=== PATIENT | male | born 1950 | race Caucasian/White ===

== ENCOUNTER 2022-11-19 16:50 | Observation (INO) | payer MEDICARE, OTHER ==
[2022-11-19] MEDS ORDERED: methocarbamoL 500 MG TAB PO STA (17:18)
--- NOTE | 2022-11-19 17:21 | ED ---
Back Pain HPI - General Chief Complaint: Back Pain/Injury Stated Complaint: back pain Source: EMS Limitations: no limitations - History of Present Illness Initial Comments: 71-year-old male with past medical history significant for COPD presents to the ER with a chief complaint of back pain. Patient states he was coughing, as per usual with history of COPD and tobacco use when all of a sudden started to feel pain of his lower back after coughing. States that due to severity of the pain has been unable to ambulate and has had difficulties moving. Denies saddle anesthesia. Denies incontinence. No other complaints at this time. - Related Data Allergies Allergy/AdvReac Type Severity Reaction Status Date / Time No Known Allergies Allergy Verified 11/19/22 17:02 Review of Systems ROS Statement: Those systems with pertinent positive or pertinent negative responses have been documented in the HPI. ROS Other: All systems not noted in ROS Statement are negative. Past Medical History Past Medical History: Cancer, COPD History of Any Multi-Drug Resistant Organisms: None Reported Past Surgical History: Back Surgery Smoking Status: Current every day smoker Past Alcohol Use History: Occasional Past Drug Use History: None Reported General Exam Limitations: no limitations General appearance: alert, in no apparent distress Eye exam: Present: normal appearance Neck exam: Present: other (No midline cervical spinal tenderness to palpation.) Respiratory exam: Present: normal lung sounds bilaterally Cardiovascular Exam: Present: regular rate, normal rhythm GI/Abdominal exam: Present: soft Extremities exam: Present: other (Strength and sensation in bilateral lower extremities equal and intact.) Back exam: Present: other (No Midline thoracic spinal tenderness to palpation. Midline lumbar and paraspinal tenderness to palpation.) Neurological exam: Present: alert, oriented X3 Skin exam: Present: warm, dry Course Vital Signs 11/19/22 16:56 Temperature 97.8 F Pulse Rate 57 L Respiratory 16 Rate Blood Pressure 124/82 O2 Sat by Pulse 100 Oximetry Medical Decision Making - Medical Decision Making Was pt. sent in by a medical professional or institution (, PA, RIFLE CASE REPAIRER, urgent care, hospital, or prison...) When possible be specific @ -No Did you speak to anyone other than the patient for history (EMS, parent, family, police, friend...)? What history was obtained from this source @ -No Did you review nursing and triage notes (agree or disagree)? Why? @ -I reviewed and agree with nursing and triage notes Were old charts reviewed (outside hosp., previous admission, EMS record, old EKG, old radiological studies, urgent care reports/EKG's, prison records)? Report findings @ -No old charts were reviewed Differential Diagnosis (chest pain, altered mental status, abdominal pain women, abdominal pain men, vaginal bleeding, weakness, fever, dyspnea, syncope, headache, dizziness, GI bleed, back pain, seizure, CVA, palpatations, mental health, musculoskeletal)? @ -Differential Musculoskeletal Muscular strain, contusion, ligament sprain, fracture, arthritis, septic arthritis, bursitis, cellulitis, muscle spasm, nerve compression, DVT, arterial occlusion, herpes zoster, electrolyte abnormality, tumor.... This is not meant to be in all inclusive list EKG interpreted by me (3pts min.). @ -None X-rays interpreted by me (1pt min.). @ -X-ray shows age indeterminate fractures involving L1 to L4. CT interpreted by me (1pt min.). @ -None done U/S interpreted by me (1pt. min.). @ -None done What testing was considered but not performed or refused? (CT, X-rays, U/S, labs)? Why? @ -None What meds were considered but not given or refused? Why? @ -None Did you discuss the management of the patient with other professionals (professionals i.e. , PA, RIFLE CASE REPAIRER, lab, RT, psych nurse, social work lecturer, tube bender hand, teacher, associate loan officer, registered nurse hh case manager)? Give summary @ -No Was smoking cessation discussed for >3mins.? @ -No Was critical care preformed (if so, how long)? @ -No Were there social determinants of health that impacted care today? How? (Homelessness, low income, unemployed, alcoholism, drug addiction, transportation, low edu. Level, literacy, decrease access to med. care, assisted, rehab)? @ -No Was there de-escalation of care discussed even if they declined (Discuss DNR or withdrawal of care, Hospice)? DNR status @ -No What co-morbidities impacted this encounter? (DM, HTN, Smoking, COPD, CAD, Cancer, CVA, ARF, Chemo, Hep., AIDS, mental health diagnosis, sleep apnea, morbid obesity)? @ -COPD Was patient admitted / discharged? Hospital course, mention meds given and route, prescriptions, significant lab abnormalities, going to OR and other pertinent info. @ -Admission. X-ray shows age indeterminate fractures involving L1 to L4. However, likely old. Patient reports incident 6 months ago and follows with Dr. Delgado at [facility] for this. At this time, patient has intractable pain and denies unable to move or ambulate secondary to this pain. Patient will be admitted for pain control, consult orthopedics, and possible consults to PT/OT. Discussed plan of care with patient who is in agreement. Undiagnosed new problem with uncertain prognosis? @ -No Drug Therapy requiring intensive monitoring for toxicity (Heparin, Nitro, Insulin, Cardizem)? @ -No Were any procedures done? @ -No Diagnosis/symptom? @ -Intractable back pain Acute, or Chronic, or Acute on Chronic? @ -Acute on chronic Uncomplicated (without systemic symptoms) or Complicated (systemic symptoms)? @ -Uncomplicated Side effects of treatment? @ -No Exacerbation, Progression, or Severe Exacerbation? @ -No Poses a threat to life or bodily function? How? (Chest pain, USA, VT, pneumonia, PE, COPD, DKA, ARF, appy, cholecystitis, CVA, Diverticulitis, Homicidal, Suicidal, threat to staff... and all critical care pts) @ -No Disposition Clinical Impression: Back pain Disposition: ADMITTED IP TO THIS HOSP Condition: Good Referrals: Nonstaff,Physician [Primary Care Provider] - 1-2 days Time of Disposition: 18:21
--- NOTE | 2022-11-19 17:58 | XR ---
EXAMINATION TYPE: XR chest 2V DATE OF EXAM: 11/19/2022 COMPARISON: NONE HISTORY: Shortness of breath TECHNIQUE: Frontal and lateral views of the chest are obtained. FINDINGS: Scattered senescent parenchymal changes noted. Hyperinflation compatible with COPD. There is increased opacity left mid and left lower lung zone which may reflect atelectasis, infiltrat e or mass. Pleural effusion is not excluded. Hyperinflation of the right lung noted. Heart size is stable. Mediastinal structures are stable and grossly unremarkable. There is large hiatal hernia noted. No evidence for hilar prominence. Degenerative changes dorsal spine. IMPRESSION: 1. There is increased opacity left mid and left lower lung zone which may reflect atelectasis, infilt rate or mass. Pleural effusion is not excluded. Hyperinflation of the right lung noted.
--- NOTE | 2022-11-19 18:00 | XR ---
EXAMINATION TYPE: XR lumbar spine 2 or 3V DATE OF EXAM: 11/19/2022 CLINICAL HISTORY: pain TECHNIQUE: Three views of the lumbar spine are submitted. COMPARISON: None. FINDINGS: T12 and L2 vertebroplasty changes. There is a loss of height involving L4 with estimated loss of heig ht of 30%. There is also mild loss of height involving superior endplate of L1 loss of height estimat ed at 10%. Degenerative changes noted. Vascular calcifications seen. IMPRESSION: Fractures of uncertain age and/or etiology involving L1 and L4.
[2022-11-19] MEDS ORDERED: HYDROmorphone 1 MG/ML 1 ML SYRINGE IVP STA (18:59)
[2022-11-19 19:17] LABS: Basophils % (A) 0 %; Eosinophils # (A) 0.1 k/uL (0-0.7); Eosinophils % (A) 1 %; HCT 39.6 % (39.0-53.0); HGB 13.6 gm/dL (13.0-17.5); Lymphocytes % (A) 16 %; MCH 30.5 pg (25.0-35.0); MCHC 34.3 g/dL (31.0-37.0); MCV 88.9 fL (80.0-100.0); Mean Platelet Volume 7.1; Monocytes # (A) 0.4 k/uL (0-1.0); Monocytes % (A) 7 %; Neutrophils # (A) 4.6 k/uL (1.3-7.7); Neutrophils % (A) 74 %; Platelet Count 235 k/uL (150-450); RBC 4.45 m/uL (4.30-5.90); RDW 13.5 % (11.5-15.5); WBC 6.3 k/uL (3.8-10.6)
[2022-11-19 19:28] LABS: ALT 17 U/L (4-49); AST 23 U/L (17-59); African American GFR (CKD) >90 (>60 ml/min/1.73 sqM); Alkaline Phosphatase 96 U/L (38-126); Amylase 40 U/L (30-110); Anion Gap 4 mmol/L; Blood Urea Nitrogen 8 mg/dL (9-20); Calcium 8.3 mg/dL (8.4-10.2); Carbon Dioxide 29 mmol/L (22-30); Chloride 95 mmol/L (98-107); Glucose 108 mg/dL (74-99); Lipase 70 U/L (23-300); Non-African American GFR(CKD) >90 (>60 ml/min/1.73 sqM); Potassium 3.9 mmol/L (3.5-5.1); Sodium 128 mmol/L (137-145); Total Bilirubin 0.5 mg/dL (0.2-1.3); Total Protein 5.8 g/dL (6.3-8.2)
[2022-11-19 19:33] LABS: INR 1.1 (<1.2); Partial Thromboplastin Time 29.5 sec (22.0-30.0); Prothrombin Time 11.4 sec (9.0-12.0)
--- NOTE | 2022-11-19 21:48 | CT ---
EXAMINATION TYPE: CT ChestAbdPelvis w con CT DLP: 670.6 mGycm, Automated exposure control for dose reduction was used. DATE OF EXAM: 11/19/2022 9:03 PM COMPARISON: None. CLINICAL INDICATION:Male, 71 years old with history of pain; PHH, generalized abd pain Technique: Multiple axial images of the chest, abdomen, and pelvis were obtained. Two-dimensional cor onal and sagittal reconstructions were obtained. Contrast used:100ml mL of Isovue 300 with IV Contrast, Oral contrast used: without Oral Contrast Findings: CHEST: LUNGS/ PLEURA: The right lung demonstrates moderate centrilobular emphysema changes. There is a diap hragmatic hernia with majority of the intra-abdominal contents within the left thorax. AIRWAY: There is layering debris within the left main bronchus. HEART: Heart is mildly enlarged for size coronary artery calcifications. MEDIASTINUM: No gross evidence of adenopathy. There is a large hiatal hernia with ingested contents w ithin the esophagus. VASCULATURE: No aortic aneurysm. MUSCULOSKELETAL: No acute osseous abnormalities. Remote appearing left rib injuries. Vertebroplasty c hanges within the spine L2 and T12. Multiple biconcave deformities are seen throughout the spine. The re is osteophyte formation, disc space narrowing and facet joint arthropathy. SOFT TISSUES/LYMPH NODES: Unremarkable. LOWER NECK: No significant findings. ABDOMEN: Evaluation of the abdomen is somewhat limited given the majority of it is within the thorax. ABDOMEN LIVER: Unremarkable GALLBLADDER AND BILE DUCTS: Intrahepatic biliary dilation. Mild extrahepatic biliary dilation. PANCREAS: Unremarkable. SPLEEN: Unremarkable. ADRENAL GLANDS: Unremarkable. KIDNEYS AND URETERS: And the left kidney is somewhat situated inferiorly and medial with the renal si nus projecting posteriorly. No definitive evidence for obstructive uropathy. Renal nephrograms are sy mmetric. PELVIS BLADDER: Unremarkable REPRODUCTIVE: Unremarkable. ABDOMEN & PELVIS STOMACH AND BOWEL: No evidence of bowel obstruction. PERITONEUM: No evidence of pneumoperitoneum or free fluid. VASCULATURE: Moderate atherosclerotic calcifications are present throughout the abdominal aorta and i ts branches. MUSCULOSKELETAL: No acute osseous abnormalities. Moderate disc degeneration changes are present throu ghout the thoracolumbar spine. Fixation changes to the left femur. Hardware appears intact. Multileve l degeneration changes throughout the spine. LYMPH NODES: No gross evidence for lymphadenopathy. SOFT TISSUE/ABDOMINAL WALL: Unremarkable IMPRESSION: Evaluation of the abdomen is somewhat limited given the majority of it is within the thorax. 1. There is a diaphragmatic hernia with majority of the intra-abdominal contents within the left tho rax. 2. Moderate emphysema changes. 3. Large hiatal hernia with large amount amount of ingested contents within the esophagus. 4. Layering debris in the left main bronchus could represent aspiration changes versus retained secr etions.
[2022-11-19] MEDS ORDERED: NALOXONE 0.4 MG/ML 1 ML VIAL IV PRN (22:02)
[2022-11-19] MEDS ORDERED: ONDANSETRON 4 MG/2 ML VIAL IVP PRN (22:02)
[2022-11-19] MEDS ORDERED: ACETAMINOPHEN TAB 325 MG TAB PO PRN (22:02)
[2022-11-19] MEDS: HYDROmorphone 1 MG/ML 1 ML SYRINGE IVP PRN (22:17)
[2022-11-19] MEDS: SODIUM CHLORIDE 0.9% 1,000 ML IV SCH (22:30)
[2022-11-20] MEDS: HYDROmorphone 1 MG/ML 1 ML SYRINGE IVP PRN ×8 (01:49→23:19)
[2022-11-20] MEDS ORDERED: MELATONIN 5 MG TABLET PO STA (01:58)
--- NOTE | 2022-11-20 02:12 | P.HPIM ---
History of Present Illness H&P Date: 11/19/22 Patient is a 71-year-old male with a PMH of COPD, hypertension, hyperlipidemia, and multiple spinal compression fractures who presents to the emergency room with complaints of lower back pain. The patient reports that earlier tonight she was coughing as per usual for his COPD when he suddenly developed a lower back severe bilateral pain, 10 out of 10, nonradiating, worsened with movement. The patient reports that this is similar to what he had his prior compression fractures. He reports the pain is improved with 5 out of 10 at the time of interview after having received pain medications. He denied experienced chest discomfort or shortness of breath. Also denied nausea, vomiting, diaphoresis. In the emergency room, CT chest, abdomen, and pelvis revealed a diaphragmatic hernia with intra-abdominal contents within the left hemithorax. There was also moderate emphysema changes as well as a large hiatal hernia with a large amount of ingested contents within the esophagus as well as layering debris in the left main bronchus suspicious for aspiration. Lumbar spinal x-ray revealed fractures of uncertain age involving L1 and L4. The patient's vital signs upon presentation were BP 124/82, SaO2 100% on 4 L nasal cannula oxygen, pulse 57, and temperature 97.8F. Laboratory evaluation was remarkable for sodium 128, chloride 95, BUN 8, creatinine 0.55, hemoglobin 13.6. ED documentation reviewed and case discussed with ED provider. Review of systems: Pertinent positives and negatives as discussed in HPI, a complete review of systems was performed and all other systems are negative. Physical examination: Vital signs reviewed General: non toxic, no distress, appears at stated age, thin Derm: no unusual rashes/lesions, warm Head: atraumatic, normocephalic, symmetric Eyes: EOMI, no lid lag, anicteric sclera, pupils equal round reactive to light ENT: Nose and ears atraumatic Neck: No cervical lymphadenopathy, trachea midline, supple Mouth: no lip lesion, mucus membranes moist Cardiovascular: S1S2 reg, no murmur, positive dorsalis pedis pulse bilateral, no edema Lungs: Diminished breath sounds over the left mid and lower lung geller, no rhonchi, no rales, no accessory muscle use Abdominal: soft, nontender to palpation, no guarding Ext: muscle strength 5 out of 5 in all 4 extremities grossly, no gross muscle atrophy, no contractures, lumbar spinal and paraspinal tenderness noted Neuro: CN II-XI grossly intact, no gross focal neuro deficits Psych: Alert, oriented, appropriate affect Assessment: Lower back pain, suspect due to compression fracture Diaphragmatic hernia with intra-abdominal contents in left hemithorax; suspect incidental finding Hypochloremic hyponatremia, suspect due to poor oral intake Esophageal contents with suspected aspiration Chronic conditions: Hypertension, hyperlipidemia, COPD Imaging: In the emergency room, CT chest, abdomen, and pelvis revealed a diaphragmatic hernia with intra-abdominal contents within the left hemithorax. There was also moderate emphysema changes as well as a large hiatal hernia with a large amount of ingested contents within the esophagus as well as layering debris in the left main bronchus suspicious for aspiration. Lumbar spinal x-ray revealed fractures of uncertain age involving L1 and L4. Data Review: The patient's vital signs upon presentation were BP 124/82, SaO2 100% on 4 L nasal cannula oxygen, pulse 57, and temperature 97.8F. Laboratory evaluation was remarkable for sodium 128, chloride 95, BUN 8, creatinine 0.55, hemoglobin 13.6. Plan: Orthopedic surgery consult Pain control TLSO Brace with bedrest Obtain general surgery consult for diaphragmatic hernia. Patient denied prior history of hernia Continue IV fluids with normal saline 75hour VALLEZ FILTER OPERATOR consult to rule out aspiration Continuing home medications DVT prophylaxis: Lovenox The patient is admitted with an anticipated greater than 2 midnight stay for evaluation of back pain CODE STATUS: Full Code Discussed with: Patient Anticipated discharge place: Home Past Medical History Past Medical History: Cancer, COPD History of Any Multi-Drug Resistant Organisms: None Reported Past Surgical History: Back Surgery Smoking Status: Current every day smoker Past Alcohol Use History: Occasional Past Drug Use History: None Reported Medications and Allergies Home Medications Medication Instructions Recorded Confirmed Type Albuterol Nebulized [Ventolin 2.5 mg INHALATION RT-QID PRN 11/19/22 11/19/22 History Nebulized] Albuterol Sulfate [Albuterol 1 - 2 puff PO RT-Q6H PRN 11/19/22 11/19/22 History Sulfate Hfa] Atorvastatin [Lipitor] 40 mg PO DAILY 11/19/22 11/19/22 History Budesonide/Formoterol Fumarate 2 puff INHALATION RT-BID 11/19/22 11/19/22 History [Symbicort 80-4.5 Mcg Inhaler] Clopidogrel [Plavix] 75 mg PO DAILY 11/19/22 11/19/22 History Fluticasone/Umeclidin/Vilanter 1 puff INHALATION RT-DAILY 11/19/22 11/19/22 History [Trelegy Ellipta 100-62.5-25] HYDROmorphone HCL [Dilaudid] 8 mg PO Q4H 11/19/22 11/19/22 History Ketoconazole 2% Cream [Nizoral 2%] 1 applic TOPICAL DAILY 11/19/22 11/19/22 History Metoprolol Tartrate [Lopressor] 12.5 mg PO BID 11/19/22 11/19/22 History Sacubitril/Valsartan [Entresto 24 1 tab PO BID 11/19/22 11/19/22 History mg-26 mg Tablet] Allergies Allergy/AdvReac Type Severity Reaction Status Date / Time No Known Allergies Allergy Verified 11/19/22 18:52 Physical Exam Vitals: Vital Signs Temp Pulse Resp BP Pulse Ox 11/19/22 22:39 62 95/78 99 11/19/22 22:00 97.7 F 50 L 124/82 100 11/19/22 21:52 100 11/19/22 16:56 97.8 F 57 L 16 124/82 100 Intake and Output 11/19/22 11/19/22 11/20/22 14:59 22:59 06:59 Other: Weight 53.524 kg Results CBC & Chem 7: 11/19/22 19:04 11/19/22 19:04 Labs: Abnormal Lab Results - Last 24 Hours (Table) 11/19/22 Range/Units 19:04 Sodium 128 L (137-145) mmol/L Chloride 95 L (98-107) mmol/L BUN 8 L (9-20) mg/dL Creatinine 0.55 L (0.66-1.25) mg/dL Glucose 108 H (74-99) mg/dL Calcium 8.3 L (8.4-10.2) mg/dL Total Protein 5.8 L (6.3-8.2) g/dL Albumin 3.0 L (3.5-5.0) g/dL
[2022-11-20 07:02] LABS: African American GFR (CKD) >90 (>60 ml/min/1.73 sqM); Anion Gap 4 mmol/L; Blood Urea Nitrogen 10 mg/dL (9-20); Carbon Dioxide 27 mmol/L (22-30); Chloride 97 mmol/L (98-107); Glucose 99 mg/dL (74-99); Non-African American GFR(CKD) >90 (>60 ml/min/1.73 sqM); Potassium 4.1 mmol/L (3.5-5.1); Sodium 128 mmol/L (137-145)
[2022-11-20] MEDS: ATORVASTATIN 40 MG TAB PO SCH (07:57)
[2022-11-20] MEDS: METOPROLOL TARTRATE 12.5 MG TAB PO SCH ×2 (07:57→21:05)
[2022-11-20] MEDS: CLOPIDOGREL 75 MG TAB PO SCH (07:57)
[2022-11-20] MEDS: KETOROLAC 15 MG/ML 1 ML VIAL IVP PRN (07:59)
[2022-11-20] MEDS: ENOXAPARIN 40 MG/0.4 ML SYRINGE SQ SCH ×2 (07:59→08:01)
[2022-11-20] MEDS ORDERED: SYMBICORT 80-4.5 MCG INHALER INHALATION SCH (08:00)
[2022-11-20] MEDS: SODIUM CHLORIDE 0.9% 1,000 ML IV SCH ×2 (11:25→23:22)
[2022-11-20] MEDS ORDERED: ALBUTEROL NEBULIZED 2.5 MG/3 ML INHALATION PRN (14:53)
--- NOTE | 2022-11-20 14:56 | P.PN ---
Subjective Progress Note Date: 11/20/22 Hospital Course: 71-year-old male with a PMH of COPD, hypertension, hyperlipidemia, and multiple spinal compression fractures who presents to the emergency room with complaints of lower back pain. In the emergency room, CT chest, abdomen, and pelvis revealed a diaphragmatic hernia with intra-abdominal contents within the left hemithorax. There was also moderate emphysema changes as well as a large hiatal hernia with a large amount of ingested contents within the esophagus as well as layering debris in the left main bronchus suspicious for aspiration. Lumbar spinal x-ray revealed fractures of uncertain age involving L1 and L4. The patient's vital signs upon presentation were BP 124/82, SaO2 100% on 4 L nasal cannula oxygen, pulse 57, and temperature 97.8F. Laboratory evaluation was remarkable for sodium 128, chloride 95, BUN 8, creatinine 0.55, hemoglobin 13.6. Orthospine and Gen. surgery consulted. Subjective: Patient seen and examined at bedside. No acute events overnight. He continues to have back pain. Pertinent positives and negatives as discussed above, a complete review of systems was performed and all other systems are negative. Vitals Signs Reviewed. General: non toxic, no distress, appears at stated age, thin Derm: no unusual rashes/lesions, warm Head: atraumatic, normocephalic, symmetric Eyes: EOMI, no lid lag, anicteric sclera, pupils equal round reactive to light ENT: Nose and ears atraumatic Neck: No cervical lymphadenopathy, trachea midline, supple Mouth: no lip lesion, mucus membranes moist Cardiovascular: S1S2 reg, no murmur, positive dorsalis pedis pulse bilateral, no edema Lungs: Diminished breath sounds over the left mid and lower lung geller, no rhonchi, no rales, no accessory muscle use Abdominal: soft, nontender to palpation, no guarding Ext: muscle strength 5 out of 5 in all 4 extremities grossly, no gross muscle a trophy, no contractures, lumbar spinal and paraspinal tenderness noted, straight leg raise test negative Neuro: CN II-XI grossly intact, no gross focal neuro deficits Psych: Alert, oriented, appropriate affect Data Reviewed Today: Pertinent Labs: Sodium 128, creatinine 0.49 Imaging: No new imaging Assessment and Plan: Active: Lower back pain, suspect due to compression fracture Diaphragmatic hernia with intra-abdominal contents in left hemithorax; suspect incidental finding Hypochloremic hyponatremia, suspect due to poor oral intake Esophageal contents with suspected aspiration -Orthopedic spine surgery consulted, pending recommendations, thoracic lumbar spine CT pending -Gen. surgery consulted, pending recommendations -Continue normal saline at 75 mL an hour -No signs or symptoms of infection Chronic: Hypertension, hyperlipidemia, COPD DVT ppx: Lovenox Code status: full code Anticipated discharge place: pending clinical course Anticipated discharge time: pending clinical course Objective - Vital Signs Vital signs: Vital Signs Temp 97.5 F L 11/20/22 07:08 Pulse 50 L 11/20/22 07:08 Resp 18 11/20/22 07:08 BP 115/63 11/20/22 07:08 Pulse Ox 96 11/20/22 07:08 FiO2 Intake & Output 11/19/22 11/20/22 11/20/22 18:59 06:59 18:59 Output Total 200 Balance -200 Weight 53.524 kg 53.524 kg Output: Urine 200 - Labs CBC & Chem 7: 11/19/22 19:04 11/20/22 06:36 Labs: Abnormal Lab Results - Last 24 Hours (Table) 11/19/22 11/20/22 Range/Units 19:04 06:36 Sodium 128 L 128 L (137-145) mmol/L Chloride 95 L 97 L (98-107) mmol/L BUN 8 L (9-20) mg/dL Creatinine 0.55 L 0.49 L (0.66-1.25) mg/dL Glucose 108 H (74-99) mg/dL Calcium 8.3 L 8.0 L (8.4-10.2) mg/dL Total Protein 5.8 L (6.3-8.2) g/dL Albumin 3.0 L (3.5-5.0) g/dL
[2022-11-20 15:08] VITALS: BMI 17.4
[2022-11-20] MEDS ORDERED: HYDROmorphone 2 MG TAB PO PRN (15:22)
[2022-11-20] MEDS ORDERED: CYCLOBENZAPRINE 5 MG TAB PO PRN (15:23)
--- NOTE | 2022-11-20 15:58 | P.GSCN ---
History of Present Illness Consult date: 11/20/22 Reason for Consult: Large hiatal hernia History of present illness: Is a 71-year-old male who was admitted to the hospital for back pain. Patient has fractures of L1 and L4. Patient has complaints of back pain. Patient awake CAT scan he was incidentally found to have a very large left sided hiatal hernia with a large component of the abdominal contents in the left chest. Past Medical History Past Medical History: Cancer, COPD History of Any Multi-Drug Resistant Organisms: None Reported Past Surgical History: Back Surgery Smoking Status: Current every day smoker Past Alcohol Use History: Occasional Past Drug Use History: None Reported Medications and Allergies Home Medications Medication Instructions Recorded Confirmed Type Albuterol Nebulized [Ventolin 2.5 mg INHALATION RT-QID PRN 11/19/22 11/19/22 History Nebulized] Albuterol Sulfate [Albuterol 1 - 2 puff PO RT-Q6H PRN 11/19/22 11/19/22 History Sulfate Hfa] Atorvastatin [Lipitor] 40 mg PO DAILY 11/19/22 11/19/22 History Budesonide/Formoterol Fumarate 2 puff INHALATION RT-BID 11/19/22 11/19/22 History [Symbicort 80-4.5 Mcg Inhaler] Clopidogrel [Plavix] 75 mg PO DAILY 11/19/22 11/19/22 History Fluticasone/Umeclidin/Vilanter 1 puff INHALATION RT-DAILY 11/19/22 11/19/22 History [Trelegy Ellipta 100-62.5-25] HYDROmorphone HCL [Dilaudid] 8 mg PO Q4H 11/19/22 11/19/22 History Ketoconazole 2% Cream [Nizoral 2%] 1 applic TOPICAL DAILY 11/19/22 11/19/22 History Metoprolol Tartrate [Lopressor] 12.5 mg PO BID 11/19/22 11/19/22 History Sacubitril/Valsartan [Entresto 24 1 tab PO BID 11/19/22 11/19/22 History mg-26 mg Tablet] Allergies Allergy/AdvReac Type Severity Reaction Status Date / Time No Known Allergies Allergy Verified 11/19/22 18:52 Surgical - Exam Vital Signs Temp Pulse Resp BP Pulse Ox 97.8 F 57 L 16 124/82 100 11/19/22 16:56 11/19/22 16:56 11/19/22 16:56 11/19/22 16:56 11/19/22 16:56 - General Patient is complaining of lower back pain well developed, moderate distress - Eyes PERRL - ENT normal pinna - Neck no masses - Respiratory normal expansion - Cardiovascular Rhythm: regular - Abdomen Abdomen: soft, non tender Results - Labs 11/19/22 19:04 11/20/22 06:36 Abnormal Lab Results - Last 24 Hours (Table) 11/19/22 11/20/22 Range/Units 19:04 06:36 Sodium 128 L 128 L (137-145) mmol/L Chloride 95 L 97 L (98-107) mmol/L BUN 8 L (9-20) mg/dL Creatinine 0.55 L 0.49 L (0.66-1.25) mg/dL Glucose 108 H (74-99) mg/dL Calcium 8.3 L 8.0 L (8.4-10.2) mg/dL Total Protein 5.8 L (6.3-8.2) g/dL Albumin 3.0 L (3.5-5.0) g/dL Diabetes panel 11/19/22 11/20/22 Range/Units 19:04 06:36 Sodium 128 L 128 L (137-145) mmol/L Potassium 3.9 4.1 (3.5-5.1) mmol/L Chloride 95 L 97 L (98-107) mmol/L Carbon Dioxide 29 27 (22-30) mmol/L BUN 8 L 10 (9-20) mg/dL Creatinine 0.55 L 0.49 L (0.66-1.25) mg/dL Glucose 108 H 99 (74-99) mg/dL Calcium 8.3 L 8.0 L (8.4-10.2) mg/dL AST 23 (17-59) U/L ALT 17 (4-49) U/L Alkaline Phosphatase 96 (38-126) U/L Total Protein 5.8 L (6.3-8.2) g/dL Albumin 3.0 L (3.5-5.0) g/dL Calcium panel 11/19/22 11/20/22 Range/Units 19:04 06:36 Calcium 8.3 L 8.0 L (8.4-10.2) mg/dL Albumin 3.0 L (3.5-5.0) g/dL Pituitary panel 11/19/22 11/20/22 Range/Units 19:04 06:36 Sodium 128 L 128 L (137-145) mmol/L Potassium 3.9 4.1 (3.5-5.1) mmol/L Chloride 95 L 97 L (98-107) mmol/L Carbon Dioxide 29 27 (22-30) mmol/L BUN 8 L 10 (9-20) mg/dL Creatinine 0.55 L 0.49 L (0.66-1.25) mg/dL Glucose 108 H 99 (74-99) mg/dL Calcium 8.3 L 8.0 L (8.4-10.2) mg/dL Adrenal panel 11/19/22 11/20/22 Range/Units 19:04 06:36 Sodium 128 L 128 L (137-145) mmol/L Potassium 3.9 4.1 (3.5-5.1) mmol/L Chloride 95 L 97 L (98-107) mmol/L Carbon Dioxide 29 27 (22-30) mmol/L BUN 8 L 10 (9-20) mg/dL Creatinine 0.55 L 0.49 L (0.66-1.25) mg/dL Glucose 108 H 99 (74-99) mg/dL Calcium 8.3 L 8.0 L (8.4-10.2) mg/dL Total Bilirubin 0.5 (0.2-1.3) mg/dL AST 23 (17-59) U/L ALT 17 (4-49) U/L Alkaline Phosphatase 96 (38-126) U/L Total Protein 5.8 L (6.3-8.2) g/dL Albumin 3.0 L (3.5-5.0) g/dL - Imaging CT scan - abdomen: report reviewed (Computed tomography scan reviewed. Large hiatal hernia with significant amount of bowel in left chest) Assessment and Plan Assessment: Large chronic hiatal hernia. Patient shows no sign of bowel obstruction. He has no significant abdominal pain. Patient's pain appears to be coming from his L1 to L4 back fractures. The patient will need to be medically optimized prior to any surgical intervention for his hiatal hernia. He is currently tolerating regular diet. We will remain on surgical standby.
--- NOTE | 2022-11-20 16:56 | CT ---
EXAMINATION TYPE: CT thor lumbar spine wo con CT DLP: DLP from [facility] on 11/19/22. mGycm, Automated exposure control for dose reduction was used. DATE OF EXAM: 11/20/2022 2:18 PM CLINICAL INDICATION:Male, 71 years old with history of back pain; Mid to low back pain. No new pain s rodrick prior CT on 11/19/22. COMPARISON: None TECHNIQUE: Axial images of the thoracic and lumbar spine were obtained without contrast. Coronal and sagittal reformats were performed. Imaging was used from one day prior on 11/19/[address] with reformats cr eated. CT Contrast: Contrast used: mL of , none. Oral contrast used: none. FINDINGS: Diffuse osseous demineralization is seen throughout the osseous structures. The spine demonstrates in creased kyphotic curvature secondary to multiple levels of compression deformities. There is facet rebekah int arthropathy, vacuum disc phenomenon, Schmorl's nodes, disc space narrowing and osteophyte formati on. Irregular morphology to the L4 vertebral body with lucency seen through the inferior endplate. No sig nificant retropulsion. Spinal canal is grossly patent given limitations of CT. Compression deformity of T7 and T8 with at least 50% height loss. Compression from T9, T10 and T11 wi th at least 25% height loss. T12 and L2 vertebroplasty changes. There is no evidence for significant spinal canal or neural foraminal stenosis. The remainder of the exam is unchanged from 11/19/2022 given these are reformatted images. IMPRESSION: 1. Diffuse osseous demineralization which limits evaluation for fractures. 2. L4 vertebral body illustrates lucency through the inferior vertebral body suspicious for a more a cute/subacute fracture. MRI recommended for confirmation on an outpatient basis. 3. Multilevel moderate to severe degeneration changes with varying degrees of neural foraminal steno sis.
--- NOTE | 2022-11-20 17:12 | P.CNOR ---
History of Present Illness - [facility] Consult date: 11/20/22 Consult reason: back pain History of present illness: Patient is a 71-year-old male who presented to [facility] on 11/19/2022 for evaluation of back pain. Patient was apparently on a coughing spell which led to severe low back pain. Patient has a known history of multiple thoracic and vertebral body compression fractures. Patient states that the pain felt like a previous compression fracture so he reported to the hospital for further evaluation. Patient has a known history of COPD and other medical comorbidities. Multiple imaging test and lab tests were done. I do to have normal CT abdomen and pelvis findings, Gen. surgery was also consulted. Our orthopedic team was consulted due to the thoracic/lumbar findings. Patient was evaluated today at bedside, he was resting comfortably in bed. He states that the pain is tolerable when he is not moving, any type of movement does cause pain in the low back. Patient had a previous fall about 4 months ago which resulted in multiple compression fractures in the thoracic and lumbar spine he states. He has been seeing 2 different providers at [place] [facility], apparently a kyphoplasty was done for 2 separate fractures. Patient has been utilizing a TLSO brace. Patient has also been taking hydromorphone 8 mg every 4 hours which seems to control pain. Patient still drives, he ambulates with very minimal assistance at this time. Patient denies any numbness or tingling involving the bilateral lower extremities, he denies any radiating pain to the lower extremities. He denies any genital or peroneal numbness or tingling. He denies any loss of bowel or bladder function. A computed tomography scan of the lumbar and thoracic spine without contrast was ordered after her first evaluation and discussion with my attending Dr. Prakash. Review of Systems Constitutional: Reports as per [facility] Past Medical History Past Medical History: Cancer, COPD History of Any Multi-Drug Resistant Organisms: None Reported Past Surgical History: Back Surgery Smoking Status: Current every day smoker Past Alcohol Use History: Occasional Past Drug Use History: None Reported Medications and Allergies Home Medications Medication Instructions Recorded Confirmed Type Albuterol Nebulized [Ventolin 2.5 mg INHALATION RT-QID PRN 11/19/22 11/19/22 History Nebulized] Albuterol Sulfate [Albuterol 1 - 2 puff PO RT-Q6H PRN 11/19/22 11/19/22 History Sulfate Hfa] Atorvastatin [Lipitor] 40 mg PO DAILY 11/19/22 11/19/22 History Budesonide/Formoterol Fumarate 2 puff INHALATION RT-BID 11/19/22 11/19/22 History [Symbicort 80-4.5 Mcg Inhaler] Clopidogrel [Plavix] 75 mg PO DAILY 11/19/22 11/19/22 History Fluticasone/Umeclidin/Vilanter 1 puff INHALATION RT-DAILY 11/19/22 11/19/22 History [Trelegy Ellipta 100-62.5-25] HYDROmorphone HCL [Dilaudid] 8 mg PO Q4H 11/19/22 11/19/22 History Ketoconazole 2% Cream [Nizoral 2%] 1 applic TOPICAL DAILY 11/19/22 11/19/22 History Metoprolol Tartrate [Lopressor] 12.5 mg PO BID 11/19/22 11/19/22 History Sacubitril/Valsartan [Entresto 24 1 tab PO BID 11/19/22 11/19/22 History mg-26 mg Tablet] Allergies Allergy/AdvReac Type Severity Reaction Status Date / Time No Known Allergies Allergy Verified 11/19/22 18:52 Physical Examination Gen: AOx3, NAD VSS stable at this time Integument: No obvious open lesions or sores are visualized throughout the cervical, thoracic or lumbar spine. There is no areas of erythema or soft tissue swelling Palpation: Patient demonstrates pain with palpation of the lower thoracic and lumbar spine both midline and paraspinal ROM: Full range of motion in all major muscle groups the bilateral upper and lower extremities, no focal deficits appreciated Sensory Exam: Senory exam to light touch is intact C5-T1 Senosry exam to light touch is intact L2-S1 Motor: 5/5 strength appreciated in the bilateral upper extremities with shoulder elevation, shoulder abduction, wrist extension, wrist flexion, elbow extension, elbow flexion, test lead application testing 5/5 strength appreciated in the bilateral lower extremities with hip flexion, knee extension, knee flexion, plantar flexion, dorsiflexion, EHL, FHL Reflexes: 2/4 in all UE and LE Negative Venus's bilaterally Negative Babinski bilaterally Negative Clonus bilaterally Special Test: Negative straight leg raise bilaterally Logroll maneuver reproduces no pain in the groin bilaterally Results - Labs Labs: Abnormal Lab Results - Last 24 Hours (Table) 11/19/22 11/20/22 Range/Units 19:04 06:36 Sodium 128 L 128 L (137-145) mmol/L Chloride 95 L 97 L (98-107) mmol/L BUN 8 L (9-20) mg/dL Creatinine 0.55 L 0.49 L (0.66-1.25) mg/dL Glucose 108 H (74-99) mg/dL Calcium 8.3 L 8.0 L (8.4-10.2) mg/dL Total Protein 5.8 L (6.3-8.2) g/dL Albumin 3.0 L (3.5-5.0) g/dL H & H 11/19/22 Range/Units 19:04 Hgb 13.6 (13.0-17.5) gm/dL Hct 39.6 (39.0-53.0) % Coagulation 11/19/22 Range/Units 19:04 INR 1.1 (<1.2) Result Diagrams: 11/19/22 19:04 11/20/22 06:36 - Diagnostic results Lumbar AP/lateral x-ray: report reviewed, image reviewed CT Scan - lumbar: report reviewed, image reviewed Assessment and Plan Assessment: Back pain Acute/subacute L4 vertebral compression fracture Multilevel thoracic spondylosis Multiple thoracic vertebrae compression fractures Previous T12 kyphoplasty Kyphotic deformity Multilevel lumbar spondylosis Previous L2 kyphoplasty Plan: Imaging: Multiple x-rays were reviewed of the lumbar spine. Computed tomography scan of both the thoracic and lumbar spine were ordered. I was able to review both report and images with my attending Dr. Prakash. Multiple chronic thoracic vertebral body compression fractures. Previous kyphoplasty noted at T12. Significant kyphotic deformity appreciated. Previous kyphoplasty of L2 vertebral body. Acute versus subacute L4 vertebral body compression fracture. Significant spondylosis noted at L5-S1 Plan: I was able to discuss the case, this including the physical exam findings and imaging studies my attending Dr. Prakash. Patient demonstrating no acute neuropathic signs at this time. No emergent orthopedic spine surgical intervention is recommended at this time. Recommending conservative measures, this included the use of his TLSO brace. I was able to restart his home pain medication. I also added Flexeril 5 mg 3 times a day as needed for muscle spasms. PT/OT evaluation, recommending cane/walker as needed for weightbearing. Patient can weight-bear as tolerated. Avoid significant lifting, bending or twisting Encourage incentive spirometer GI and DVT prophylaxis per primary medical service Other manager medical recommendations appreciated We'll continue to evaluate patient during his hospital stay Time with Patient: Less than 30
[2022-11-20] MEDS: SACUBITRIL/VALSARTAN 24 MG-26 MG TABLET PO SCH (21:05)
[2022-11-21] MEDS: HYDROmorphone 1 MG/ML 1 ML SYRINGE IVP PRN ×2 (03:05→06:35)
[2022-11-21] MEDS ORDERED: SYMBICORT 80-4.5 MCG INHALER INHALATION SCH (08:00)
[2022-11-21] MEDS: SACUBITRIL/VALSARTAN 24 MG-26 MG TABLET PO SCH ×2 (08:31→22:33)
[2022-11-21] MEDS: ATORVASTATIN 40 MG TAB PO SCH (08:31)
[2022-11-21] MEDS: CLOPIDOGREL 75 MG TAB PO SCH (08:31)
[2022-11-21] MEDS: METOPROLOL TARTRATE 12.5 MG TAB PO SCH ×3 (08:32→21:59)
[2022-11-21] MEDS: ENOXAPARIN 40 MG/0.4 ML SYRINGE SQ SCH (08:32)
[2022-11-21 09:11] LABS: Blood Urea Nitrogen 9.4 mg/dL (9.0-27.0); Calcium 8.1 mg/dL (8.7-10.3); Carbon Dioxide 25.5 mmol/L (21.6-31.8); Chloride 97 mmol/L (96-109); Glucose 100 mg/dL (70-110); Potassium 4.2 mmol/L (3.5-5.5); Sodium 130 mmol/L (135-145)
[2022-11-21] MEDS: IPRATROPIUM 0.5 MG/2.5 ML NEBU INHALATION SCH ×4 (09:22→20:59)
[2022-11-21 09:24] LABS: HCT 37.4 % (39.6-50.0); HGB 12.2 d/dL (13.0-17.0); MCH 28.9 pg (27.0-32.0); MCHC 32.6 d/dL (32.0-37.0); MCV 88.6 FL (80.0-97.0); Mean Platelet Volume 9.3 FL (9.5-12.2); NRBC Per 100 WBC 0 X 10*3/uL (0.00-0.01); Platelet Count 247 X 10*3/uL (140-440); RBC 4.22 X 10*6/uL (4.40-5.60); RDW 14.1 % (11.5-14.5); WBC 5.39 X 10*3/uL (4.50-10.00)
[2022-11-21 09:25] LABS: Basophils # (A) 0.04 X 10*3/uL (0.00-0.10); Basophils % (A) 0.7 %; Eosinophils # (A) 0.09 X 10*3/uL (0.04-0.35); Eosinophils % (A) 1.7 %; Lymphocytes # (A) 1.38 X 10*3/uL (0.90-5.00); Lymphocytes % (A) 25.6 %; Monocytes # (A) 0.61 X 10*3/uL (0.20-1.00); Monocytes % (A) 11.3 %; Neutrophils # (A) 3.25 X 10*3/uL (1.80-7.70); Neutrophils % (A) 60.3 %
[2022-11-21] MEDS: HYDROmorphone 0.5 MG/0.5 ML SYRINGE IVP PRN ×4 (10:14→21:54)
--- NOTE | 2022-11-21 13:45 | P.PN ---
Subjective Progress Note Date: 11/21/22 Principal diagnosis: Back pain, multiple thoracic/lumbar vertebral compression fracture Patient was evaluated today at bedside, he is resting in his hospital chair, he is sleeping upon arrival but easily awoken. He states that the pain medication is not helping much at this time. Patient hasn't received any the Flexeril that I ordered, and the changes today scheduled order. Internal medicine did change the oral Dilaudid ordered to a immediate release oxycodone. Patient is also utilizing IV pain medication at this time. Patient was eager to work with physical therapy, he is waiting for the brace to protect brought in by family. He continues to deny any numbness or tingling in the bilateral upper or lower extremities, loss of bowel or bladder function, you weakness in the bilateral upper or lower extremities. Objective - Vital Signs Vital signs: Vital Signs Temp 97.6 F 11/21/22 07:22 Pulse 70 11/21/22 09:35 Resp 18 11/21/22 07:22 BP 126/65 11/21/22 07:22 Pulse Ox 96 11/21/22 09:22 FiO2 Intake & Output 11/20/22 11/21/22 11/21/22 18:59 06:59 18:59 Intake Total 720 Output Total 600 310 Balance 120 -310 Weight 53.524 kg Intake: Oral 720 Output: Urine 600 310 Other: Voiding Method Urinal # Bowel Movements 1 - Exam Gen: AOx3, NAD VSS stable at this time Integument: No obvious open lesions or sores are visualized throughout the cervical, thoracic or lumbar spine. There is no areas of erythema or soft tissue swelling Palpation: Patient demonstrates pain with palpation of the lower thoracic and lumbar spine both midline and paraspinal ROM: Full range of motion in all major muscle groups the bilateral upper and lower extremities, no focal deficits appreciated Sensory Exam: Senory exam to light touch is intact C5-T1 Senosry exam to light touch is intact L2-S1 Motor: 5/5 strength appreciated in the bilateral upper extremities with shoulder elevation, shoulder abduction, wrist extension, wrist flexion, elbow extension, elbow flexion, toll ticket clerk 5/5 strength appreciated in the bilateral lower extremities with hip flexion, knee extension, knee flexion, plantar flexion, dorsiflexion, EHL, FHL Reflexes: 2/4 in all UE and LE Negative Venus's bilaterally Negative Babinski bilaterally Negative Clonus bilaterally Special Test: Negative straight leg raise bilaterally Logroll maneuver reproduces no pain in the groin bilaterally - Labs CBC & Chem 7: 11/21/22 04:59 11/21/22 04:59 Labs: Abnormal Lab Results - Last 24 Hours (Table) 11/21/22 11/21/22 Range/Units 04:59 04:59 RBC 4.22 L (4.40-5.60) X 10*6/uL Hgb 12.2 L (13.0-17.0) d/dL Hct 37.4 L (39.6-50.0) % MPV 9.3 L (9.5-12.2) FL Sodium 130 L (135-145) mmol/L Creatinine 0.5 L (0.6-1.5) mg/dL Calcium 8.1 L (8.7-10.3) mg/dL Assessment and Plan Assessment: Back pain Acute/subacute L4 vertebral compression fracture Multilevel thoracic spondylosis Multiple thoracic vertebrae compression fractures Previous T12 kyphoplasty Kyphotic deformity Multilevel lumbar spondylosis Previous L2 kyphoplasty Plan: Plan: Pain control, continue with the oral medication. Recheck symptoms after use of Flexeril over the next 24 hours. Continue conservative measures, this included the use of his TLSO brace. PT/OT evaluation, recommending cane/walker as needed for weightbearing. Patient can weight-bear as tolerated. Avoid significant lifting, bending or twisting Encourage incentive spirometer GI and DVT prophylaxis per primary medical service Other medical records coder recommendations appreciated We'll continue to evaluate patient during his hospital stay Time with Patient: Less than 30
--- NOTE | 2022-11-21 14:34 | P.PN ---
Subjective Progress Note Date: 11/21/22 71-year-old male with a PMH of COPD, hypertension, hyperlipidemia, and multiple spinal compression fractures who presents to the emergency room with complaints of lower back pain. In the emergency room, CT chest, abdomen, and pelvis revealed a diaphragmatic hernia with intra-abdominal contents within the left hemithorax. There was also moderate emphysema changes as well as a large hiatal hernia with a large amount of ingested contents within the esophagus as well as layering debris in the left main bronchus suspicious for aspiration. Lumbar spinal x-ray revealed fractures of uncertain age involving L1 and L4. The patient's vital signs upon presentation were BP 124/82, SaO2 100% on 4 L nasal cannula oxygen, pulse 57, and temperature 97.8F. Laboratory evaluation was remarkable for sodium 128, chloride 95, BUN 8, creatinine 0.55, hemoglobin 13.6. Orthospine and Gen. surgery consulted. 11/21 Patient was seen and examined. Patient reports 7-11/16 severity back pain. States that Dilaudid does not work. Orthopedic Sx recommends conservative management. General surgery recommends no surgical intervention as patient is asymptomatic. CBC shows improvement of 12.2. BMP shows sodium of 130, c reatinine 0.5, calcium of 8.1. General: non toxic, no distress, appears at stated age, thin Derm: no unusual rashes/lesions, warm Head: atraumatic, normocephalic, symmetric Eyes: EOMI, no lid lag, anicteric sclera ENT: Nose and ears atraumatic Neck: No cervical lymphadenopathy, trachea midline, supple Cardiovascular: S1S2 reg, no murmur, no edema Lungs: Diminished breath sounds over the left mid and lower lung geller, no rhonchi, no rales, no accessory muscle use Ext: muscle strength 5 out of 5 in all 4 extremities grossly, no gross muscle atrophy, no contractures, lumbar spinal and paraspinal tenderness noted, straight leg raise test negative Neuro: no gross focal neuro deficits Psych: Alert, oriented, appropriate affect Lower back pain, suspect due to compression fracture Diaphragmatic hernia with intra-abdominal contents in left hemithorax; suspect incidental finding Hypochloremic hyponatremia, suspect due to poor oral intake Esophageal contents with suspected aspiration HypoNa Based on my assessment of this patient, this patient meets a high complexity level of care. Patient has an acute diagnosis of compression fracture requiring IV narcotic for pain control that poses a threat to life or bodily function. Lower back pain, suspect due to compression fracture: Added Oxycodone IR 5 mg Q6H PRN for pain. Continue Flexeril and Dilaudid PRN. PT and OT consulted. Orthopedic Sx on board. Diaphragmatic hernia with intra-abdominal contents in left hemithorax; suspect incidental finding: Dr. Hanley recommends outpatien follow up once optimized. Hypochloremic hyponatremia, suspect due to poor oral intake Esophageal contents with suspected aspiration: ST consulted. HypoNa: Continue NS at 75 cc/hr. I have reviewed the following [employer] consultant notes: Orthopedic Sx note. I have reviewed the results of the following tests: CBC, BMP. I have ordered the following tests: I have discussed the care of this patient with the following independent historian: I have independently interpreted the following test below: I have discussed the management of this patient with the following physician: Case discussed with Dr. Hanley as above. This patient has a high risk of morbidity due to the following reasons: Patient requires IV nacrotics PRN for pain control. Objective - Vital Signs Vital signs: Vital Signs Temp 97.6 F 11/21/22 07:22 Pulse 70 11/21/22 09:35 Resp 18 11/21/22 07:22 BP 126/65 11/21/22 07:22 Pulse Ox 96 11/21/22 09:22 FiO2 Intake & Output 11/20/22 11/21/22 11/21/22 18:59 06:59 18:59 Intake Total 720 Output Total 600 310 Balance 120 -310 Weight 53.524 kg Intake: Oral 720 Output: Urine 600 310 Other: Voiding Method Urinal # Bowel Movements 1 - Labs CBC & Chem 7: 11/21/22 04:59 11/21/22 04:59 Labs: Abnormal Lab Results - Last 24 Hours (Table) 11/21/22 11/21/22 Range/Units 04:59 04:59 RBC 4.22 L (4.40-5.60) X 10*6/uL Hgb 12.2 L (13.0-17.0) d/dL Hct 37.4 L (39.6-50.0) % MPV 9.3 L (9.5-12.2) FL Sodium 130 L (135-145) mmol/L Creatinine 0.5 L (0.6-1.5) mg/dL Calcium 8.1 L (8.7-10.3) mg/dL
[2022-11-21] MEDS: SODIUM CHLORIDE 0.9% 1,000 ML IV SCH (16:49)
[2022-11-21] MEDS: CYCLOBENZAPRINE 5 MG TAB PO SCH ×2 (17:32→21:53)
--- NOTE | 2022-11-21 18:01 | P.PN ---
Progress Note - Text Progress Note Date: 11/21/22 Patient still has complaints of severe lower back pain. He is being evaluated oropharynx surgery. Patient denies any abdominal pain. He is tolerating a regular diet. On exam vital signs appear stable. Abdomen soft. Large left hiatal hernia with significant abdominal contents in the left thorax. Patient is relatively asymptomatic. His back pain appears to be creating most of his pain. Patient will need to be medically optimized prior to any surgical intervention for his hiatal hernia.
[2022-11-22] MEDS: HYDROmorphone 0.5 MG/0.5 ML SYRINGE IVP PRN ×4 (01:11→16:20)
[2022-11-22] MEDS: SODIUM CHLORIDE 0.9% 1,000 ML IV SCH ×2 (03:22→16:12)
[2022-11-22 07:39] LABS: African American GFR (CKD) >90 (>60 ml/min/1.73 sqM); Anion Gap 1 mmol/L; Blood Urea Nitrogen 6 mg/dL (9-20); Carbon Dioxide 31 mmol/L (22-30); Chloride 96 mmol/L (98-107); Glucose 93 mg/dL (74-99); Non-African American GFR(CKD) >90 (>60 ml/min/1.73 sqM); Potassium 4.6 mmol/L (3.5-5.1); Sodium 128 mmol/L (137-145)
[2022-11-22] MEDS: IPRATROPIUM 0.5 MG/2.5 ML NEBU INHALATION SCH ×4 (07:53→19:34)
[2022-11-22] MEDS: SACUBITRIL/VALSARTAN 24 MG-26 MG TABLET PO SCH ×2 (08:23→20:47)
[2022-11-22] MEDS: ENOXAPARIN 40 MG/0.4 ML SYRINGE SQ SCH (08:23)
[2022-11-22] MEDS: CLOPIDOGREL 75 MG TAB PO SCH (08:23)
[2022-11-22] MEDS: ATORVASTATIN 40 MG TAB PO SCH (08:23)
[2022-11-22] MEDS: METOPROLOL TARTRATE 12.5 MG TAB PO SCH ×2 (08:23→20:47)
[2022-11-22] MEDS: CYCLOBENZAPRINE 5 MG TAB PO SCH ×3 (08:23→20:46)
--- NOTE | 2022-11-22 08:47 | P.PN ---
Subjective Progress Note Date: 11/22/22 Principal diagnosis: Back pain Multiple thoracic/lumbar vertebral compression fractures Patient seen and examined this morning. Patient is resting comfortably in bed. Patient has complaint of severe back pain with any activity. He states he has chronically been on high-dose opioids for pain management. Discussed with patient that we are going to continue with conservative measures, awaiting delivery of brace from family. Patient verbalizes understanding and agrees with plan of care. Patient will follow up in office after discharge. No acute concerns at this time. Objective - Vital Signs Vital signs: Vital Signs Temp 97.4 F L 11/22/22 07:02 Pulse 64 11/22/22 08:10 Resp 18 11/22/22 07:02 BP 125/55 11/22/22 07:02 Pulse Ox 95 11/22/22 07:02 FiO2 Intake & Output 11/21/22 11/22/22 11/22/22 18:59 06:59 18:59 Intake Total 1080 750 Output Total 1000 1250 Balance 80 -500 Intake: Intake, IV Titration 150 Amount Sodium Chloride 0.9% 1, 150 000 ml @ 75 mls/hr IV . [id number] [facility] Rx#:[id number] Oral 1080 600 Output: Urine 1000 1250 - Exam Physical Examination General: The patient is awake and alert, in no acute distress Skin: Skin is warm and dry with no obvious rashes or lesions. Eye: Pupils are equal, round and reactive to light, extra-ocular movements are intact; there is normal conjunctiva bilaterally. Neck: The neck is supple, there is no tenderness and ROM intact. Cardiovascular: There is a regular rate and rhythm. No murmur, rub or gallop is appreciated. Respiratory: Lungs are clear to auscultation, respirations are non-labored, breath sounds are equal. Gastrointestinal: Soft, non-distended, non-tender abdomen. Back: There is no tenderness to palpation in the midline, paralumbar, parat horacic or buttocks region. There is no obvious deformity . Musculoskeletal: ROM limited secondary to pain and stiffness. Muscle strength in all major muscle groups of bilateral upper extremities 5/5, bilateral lower extremities 5/5. Neurological: CN 2-12 intact. There are no obvious motor or sensory deficits. Movement and coordination equal and intact. Sensory exam to light touch intact C5-T1 and intact from L2-S1. Reflexes 2/4 in bilateral upper and lower extremities. Negative Hoffmans, babinski, and clonus signs. Psychiatric: Cooperative, appropriate mood & affect, normal judgment. - Labs CBC & Chem 7: 11/21/22 04:59 11/22/22 06:19 Labs: Abnormal Lab Results - Last 24 Hours (Table) 11/21/22 11/21/22 11/22/22 Range/Units 04:59 04:59 06:19 RBC 4.22 L (4.40-5.60) X 10*6/uL Hgb 12.2 L (13.0-17.0) d/dL Hct 37.4 L (39.6-50.0) % MPV 9.3 L (9.5-12.2) FL Sodium 130 L 128 L (135-145) mmol/L Chloride 96 L (98-107) mmol/L Carbon Dioxide 31 H (22-30) mmol/L BUN 6 L (9-20) mg/dL Creatinine 0.5 L 0.48 L (0.6-1.5) mg/dL Calcium 8.1 L 8.0 L (8.7-10.3) mg/dL Assessment and Plan Assessment: Back pain Acute/subacute L4 vertebral compression fracture Multilevel thoracic spondylosis Multiple thoracic vertebrae compression fractures Previous T12 kyphoplasty Kyphotic deformity Multilevel lumbar spondylosis Previous L2 kyphoplasty Plan: Pain control, continue with the oral medication, consult for Pain management due to high dosing opioid use. Continue conservative measures, this included the use of his TLSO brace. PT/OT evaluation, recommending cane/walker as needed for weightbearing. Patient can weight-bear as tolerated. Avoid significant lifting, bending or twisting Encourage incentive spirometer GI and DVT prophylaxis per primary medical service Other medical investigator recommendations appreciated At this time we do not recommend any emergent/urgent orthopedic surgical intervention. Patient may follow-up with Dr. Prakash office for further e valuation in 2 weeks. Orthopedics is signing off at this time. Please do not hesitate to contact us for any further questions. Time with Patient: Less than 30
--- NOTE | 2022-11-22 08:58 | CDI ---
Documentation Clarification Form Date: 11/22/2022 08:34:28 AM From: Britt Saunders RN, CCDS Admit Date: 11/19/2022 06:14:00 PM Patient Name: Elia Rivers Visit Number: [id number] Discharge Date: ATTENTION: The Clinical Documentation Specialists (CDI) and [facility] Coding Staff appreciate your assistance in clarifying documentation. Please respond to the clarification below the line at the bottom and electronically sign. The CDI & [facility] Coding staff will review the response and follow-up if needed. Please note: Queries are made part of the Legal Health Record. If you have any questions, please contact the author of this message via ITS. Dr. Eunice Coburn The Registered Dietitian assessment on 11/20/2022 indicates this patient meets criteria for severe malnutrition in the setting of acute on chronic illness. Based on this information and the findings below, is there an additional diagnosis that is clinically appropriate for this patient? History/Risk Factors: Hypertension, COPD Clinical Indicators: 71-year-old male present with low back pain. He reports appetite is good but fills up quickly. Decreased intake. Current BMI: 17.4, 14.7 kg (21.5%) severe wt. loss X [address] Consult Assessment: Altered GI function with inadequate. <50% of est needs His PCP suspects he could have gastroparesis given his abdominal distention with bloating, quick fullness with meals, and nausea. He has had significant wt. loss X the last 4 months due to these issues and being unable to eat enough. He does appear undernourished and weak. Treatment: General/healthful diet Ensure compact BID Nutrition Education Small, frequent meals + high KCAL/protein supplement between, Monitor PO Is there an additional diagnosis that is clinically appropriate for this patient? [ ] Mild Protein-Calorie Malnutrition [ ] Moderate Protein-Calorie Malnutrition [ x ] Severe Protein-Calorie Malnutrition [ ] Other condition, please specify [ ] Unable to Determine Reference: Using the ASPEN Guidelines, Undernutrition (Malnutrition) is characterized by at least two of the following six findings. The severity can be determined based on the criteria listed below. Malnutrition Characteristics for Moderate and Severe Malnutrition Type of Malnutrition Acute Illness or Injury Chronic Illness Degree of Malnutrition Non-severe (moderate) Malnutrition Severe Malnutrition Non-severe (moderate) Malnutrition Severe Malnutrition (Template Last Revised: October 2022) MTDD
[2022-11-22] MEDS: KETOROLAC 15 MG/ML 1 ML VIAL IVP PRN ×2 (11:58→18:43)
--- NOTE | 2022-11-22 12:52 | P.PN ---
Progress Note - Text Progress Note Date: 11/22/22 the patient remains clinically unchanged. He still complains of significant lower back pain related to his back fractures. Patient denies any abdominal pain. He is tolerating diet. He has no nausea or vomiting. On exam vital signs appear stable. Abdomen soft nontender. Patient is a very large hiatal hernia. The patient will need to be medically optimized before consideration of repair of this hernia.
--- NOTE | 2022-11-22 12:57 | P.PAINPG ---
Objective - Vital Signs Vital signs: Vital Signs Temp 97.4 F L 11/22/22 07:02 Pulse 64 11/22/22 08:10 Resp 18 11/22/22 07:02 BP 125/55 11/22/22 07:02 Pulse Ox 95 11/22/22 07:02 FiO2 Intake & Output 11/21/22 11/22/22 11/22/22 18:59 06:59 18:59 Intake Total 1080 750 Output Total 1000 1250 Balance 80 -500 Intake: Intake, IV Titration 150 Amount Sodium Chloride 0.9% 1, 150 000 ml @ 75 mls/hr IV . [id number] [facility] Rx#:[id number] Oral 1080 600 Output: Urine 1000 1250 - Labs CBC & Chem 7: 11/21/22 04:59 11/22/22 06:19 Labs: Abnormal Lab Results - Last 24 Hours (Table) 11/21/22 11/22/22 Range/Units 04:59 06:19 RBC 4.22 L (4.40-5.60) X 10*6/uL Hgb 12.2 L (13.0-17.0) d/dL Hct 37.4 L (39.6-50.0) % MPV 9.3 L (9.5-12.2) FL Sodium 128 L (137-145) mmol/L Chloride 96 L (98-107) mmol/L Carbon Dioxide 31 H (22-30) mmol/L BUN 6 L (9-20) mg/dL Creatinine 0.48 L (0.66-1.25) mg/dL Calcium 8.0 L (8.4-10.2) mg/dL PQRS Measure Charge Sheet Comment: HISTORY OF PRESENT ILLNESS: 71 yr old inpatient male as a referral from [facility] presents today w severe and chronic mid to lower back pain secondary to T9-T11 compression fractures, post laminectomy syndrome and L1-L4 fractures for evaluation. Pt states pain level is provoked at 10/10 in intensity, constant, localized in the mid to lower lumbar spine, sharp, achy in character w shooting pain towards the flanks, hips, knees and feet. Pain is provoked by any activity. Pain is all eviated by medications. States that Dilaudid 8mg tablets are discontinued by the pharmaceutical manufacturers. Pt is currently on Plavix and Lovenox. He has been seen by orthopedics. PMH: OA, CA, COPD PSH: Thoracolumbar kyphoplasty x2 SH: Daily tobacco use, No ETOH abuse, No illicit drug use FH: Non contributory All: See list Meds: See list REVIEW OF ORGAN SYSTEMS: CONSTITUTIONAL: No fevers or chills. No recent weight loss. NEUROLOGICAL: + numbness and tingling along the distal extremities. No seizure disorders or headaches. MUSCULOSKELETAL: + pain PSYCHIATRIC: Denies current depression or suicidal thou ghts. Physical Examinations : Constitutional : Cooperative , not in acute distress . Neurologic : Cranial nerve II to XII intact. No focal neurological deficits. Psychiatric : alert & oriented x 3. Matching mood & appropriate affect. Judgment & insight intact. Musculoskeletal : Cervical Spine Motor strength in the deltoid and biceps: Normal right side. Normal Left side Motor strength biceps and the wrist extensors: Normal right side . Normal left side Motor strength in the triceps muscle: Normal right side. Normal left side Deep tendon reflexes: Normal at the biceps. Normal at Brachioradialis. Normal at triceps Vertebral body tenderness to deep palpation over Cervical facet loading test: positive bilaterally Spurling test: positive bilaterally Neck distraction test: positive bilaterally Venus sign: positive bilaterally Lumbar spine Motor strength lower extremities ,thigh and legs 5/5 Right side , 5/5 Left side Deep tendon reflexes : Normal Knee Jerk. Normal Ankle Jerk Vertebral body tenderness over L1-L5 Thibodeaux Test positive Lumbar facet Loading Test: positive Right / positive Left Range of motion of the lumbar spine Flexion 30 degrees, extension 10 degrees Straight Leg Raise test: Left/ Right positive at degree Gurinder test: positive right / positive left. Severe tenderness over the Sacroiliac joint on the Right / Left sides Gaenslen test: positive bilaterally Seated flexion test: positive bilaterally. Sacral spine : Severe tenderness over the Sacroiliac joint: right side / left side Range of motion: Flexion of the lumbar spine <60 degrees Range of motion: Extension of the lumbar spine <20 degrees Gaenslen's Test positive BL Sriram's Test positive Gurinder test: positive right side / left side Thigh Thrust Test Sacral Thrust Test Imaging: CT without contrast of the thoracic and lumbar spine from 11/20/22 reviewed Assessment/ Plan : T12 and L2 Kyphoplasty, T9-T10-T11 compression fractures, L1-L4 fractures Recommendation of medication management. Oxycodone IR 10mg Q4h prn pain #42, a 10 day supply. Use, side effects, adverse reactions and safe storage discussed. Pt verbalized understanding. Will follow up w his PCP and specialists for medication management and additional treatment options. Continue use of TLSO device. Dangers of tobacco use discussed and pt acknowledged understanding. All questions answered. I have spent greater than 30 minutes on patient care today. Dr Mcclendon was available by phone for the evaluation of this patient. The time was used to review the medical records including relevant urine studies and Prescription history (MAPs), review of the available imaging, evaluation and examination of the patient, coordination of care with the medical staff and if applicable referring physicians, as well as creation of the medical record - Pain Location Lower Back Non-Pharmacological Interventions: Darkened Room, Distraction, Reduce Environmental Stimuli, Relaxation Technique Pharmacological Interventions: Discuss Pain Med Options, PRN Medication, Scheduled Medication PQRS Narrative: Blood Pressure [Left Arm] 125/55 Blood Pressure 95/78 Pain Intensity [Lower Back] 6 Pain Intensity 6 Pain Scale Used Numeric (1 - 10) Scale Used Numeric (1 - 10) Home Medications: Ambulatory Orders Albuterol Nebulized [Ventolin Nebulized] 2.5 mg INHALATION RT-QID PRN 11/19/22 Albuterol Sulfate [Albuterol Sulfate Hfa] 1 - 2 puff PO RT-Q6H PRN 11/19/22 Atorvastatin [Lipitor] 40 mg PO DAILY 11/19/22 Budesonide/Formoterol Fumarate [Symbicort 80-4.5 Mcg Inhaler] 2 puff INHALATION RT-BID 11/19/22 Clopidogrel [Plavix] 75 mg PO DAILY 11/19/22 Fluticasone/Umeclidin/Vilanter [Trelegy Ellipta 100-62.5-25] 1 puff INHALATION RT-DAILY 11/19/22 HYDROmorphone HCL [Dilaudid] 8 mg PO Q4H 11/19/22 Ketoconazole 2% Cream [Nizoral 2%] 1 applic TOPICAL DAILY 11/19/22 Metoprolol Tartrate [Lopressor] 12.5 mg PO BID 11/19/22 Sacubitril/Valsartan [Entresto 24 mg-26 mg Tablet] 1 tab PO BID 11/19/22 Controlled Substance Measures - Controlled Substance Measures Is patient prescribed a controlled substance at discharge?: Yes When asked, does pt state using other controlled substances?: Yes If prescribed controlled substance>3 days was MAPS reviewed?: Yes If Rx opioid, was Start Talking consent form obtained?: Yes If opioid is for acute pain is fill amount 7 days or less?: Yes Was information provided regarding opioid addiction?: Yes
--- NOTE | 2022-11-22 13:50 | P.PN ---
Subjective Progress Note Date: 11/22/22 71-year-old male with a PMH of COPD, hypertension, hyperlipidemia, and multiple spinal compression fractures who presents to the emergency room with complaints of lower back pain. In the emergency room, CT chest, abdomen, and pelvis revealed a diaphragmatic hernia with intra-abdominal contents within the left hemithorax. There was also moderate emphysema changes as well as a large hiatal hernia with a large amount of ingested contents within the esophagus as well as layering debris in the left main bronchus suspicious for aspiration. Lumbar spinal x-ray revealed fractures of uncertain age involving L1 and L4. The patient's vital signs upon presentation were BP 124/82, SaO2 100% on 4 L nasal cannula oxygen, pulse 57, and temperature 97.8F. Laboratory evaluation was remarkable for sodium 128, chloride 95, BUN 8, creatinine 0.55, hemoglobin 13.6. Orthospine and Gen. surgery consulted. 11/21 Patient was seen and examined. Patient reports 7-8/10 severity back pain. States that Dilaudid does not work. Orthopedic Sx recommends conservative management. General surgery recommends no surgical intervention as patient is asymptomatic. CBC shows improvement of 12.2. BMP shows sodium of 130, c reatinine 0.5, calcium of 8.1. 11/22 Patient was seen and examined. Patient reports 8/10 severity back pain. States that Dilaudid or Oxy IR does not work. He reports taking oxymorphone 10 mg PO Q6H at home. Orthopedic Sx recommends conservative management. General surgery recommends no surgical intervention as patient is asymptomatic. BMP shows sodium of 128, Cl 96, bicarb 31, BUN 6, creatinine 0.48, calcium of 8. General: non toxic, no distress, appears at stated age, thin Derm: no unusual rashes/lesions, warm Head: atraumatic, normocephalic, symmetric Eyes: EOMI, no lid lag, anicteric sclera ENT: Nose and ears atraumatic Neck: No cervical lymphadenopathy, trachea midline, supple Cardiovascular: S1S2 reg, no murmur, no edema Lungs: Diminished breath sounds BL, no rhonchi, no rales, no accessory muscle use Neuro: no gross focal neuro deficits Psych: Alert, oriented, appropriate affect Lower back pain, suspect due to compression fracture Diaphragmatic hernia with intra-abdominal contents in left hemithorax; suspect incidental finding Hypochloremic hyponatremia, suspect due to poor oral intake Esophageal contents with suspected aspiration HypoNa Based on my assessment of this patient, this patient meets a high complexity level of care. Patient has an acute diagnosis of compression fracture requiring IV narcotic for pain control that poses a threat to life or bodily function. Lower back pain, suspect due to compression fracture: Pain management consulted, increased Oxycodone IR 10 mg Q4H PRN for pain. Continue Flexeril and Dilaudid PRN. PT and OT consulted still pending to bring TSLO brace. Orthopedic Sx on board. Diaphragmatic hernia with intra-abdominal contents in left hemithorax; suspect incidental finding: Dr. Hanley recommends outpatient follow up once optimized. Hypochloremic hyponatremia, suspect due to poor oral intake Esophageal contents with suspected aspiration: ST consulted. HypoNa: Continue NS at 75 cc/hr. I have reviewed the following network consultant notes: Orthopedic Sx, Gen Sx note. I have reviewed the results of the following tests: BMP. I have ordered the following tests: I have discussed the care of this patient with the following independent historian: I have independently interpreted the following test below: I have discussed the management of this patient with the following physician: Case discussed with Franc Sawyer, plans for pain management consult. This patient has a high risk of morbidity due to the following reasons: Patient requires IV nacrotics PRN for pain control. Anticipate DC once cleared by PT. Objective - Vital Signs Vital signs: Vital Signs Temp 97.4 F L 11/22/22 07:02 Pulse 60 11/22/22 11:36 Resp 18 11/22/22 07:02 BP 125/55 11/22/22 07:02 Pulse Ox 95 11/22/22 07:02 FiO2 Intake & Output 11/21/22 11/22/22 11/22/22 18:59 06:59 18:59 Intake Total 1080 750 Output Total 1000 1250 Balance 80 -500 Weight 53.524 kg Intake: Intake, IV Titration 150 Amount Sodium Chloride 0.9% 1, 150 000 ml @ 75 mls/hr IV . [id number] [facility] Rx#:[id number] Oral 1080 600 Output: Urine 1000 1250 - Labs CBC & Chem 7: 11/21/22 04:59 11/22/22 06:19 Labs: Abnormal Lab Results - Last 24 Hours (Table) 11/22/22 Range/Units 06:19 Sodium 128 L (137-145) mmol/L Chloride 96 L (98-107) mmol/L Carbon Dioxide 31 H (22-30) mmol/L BUN 6 L (9-20) mg/dL Creatinine 0.48 L (0.66-1.25) mg/dL Calcium 8.0 L (8.4-10.2) mg/dL
[2022-11-22] MEDS ORDERED: HYDROmorphone 2 MG TAB PO SCH (16:00)
[2022-11-22 20:51] VITALS: RESP 17
[2022-11-23] MEDS ORDERED: MORPHINE SULFATE 2 MG/ML SYRINGE IVP STA (00:23)
[2022-11-23 01:41] VITALS: TEMP 98
[2022-11-23] MEDS: HYDROmorphone 0.5 MG/0.5 ML SYRINGE IVP PRN ×2 (03:35→09:39)
[2022-11-23] MEDS: SODIUM CHLORIDE 0.9% 1,000 ML IV SCH (04:21)
[2022-11-23] MEDS: CLOPIDOGREL 75 MG TAB PO SCH (08:02)
[2022-11-23] MEDS: CYCLOBENZAPRINE 5 MG TAB PO SCH ×2 (08:02→14:48)
[2022-11-23] MEDS: METOPROLOL TARTRATE 12.5 MG TAB PO SCH (08:02)
[2022-11-23] MEDS: SACUBITRIL/VALSARTAN 24 MG-26 MG TABLET PO SCH (08:02)
[2022-11-23] MEDS: ATORVASTATIN 40 MG TAB PO SCH (08:02)
[2022-11-23] MEDS: ENOXAPARIN 40 MG/0.4 ML SYRINGE SQ SCH (08:03)
[2022-11-23] MEDS: IPRATROPIUM 0.5 MG/2.5 ML NEBU INHALATION SCH ×2 (08:28→11:40)
--- NOTE | 2022-11-23 09:33 | P.PN ---
Subjective Progress Note Date: 11/23/22 Principal diagnosis: Back pain Multiple thoracic/lumbar vertebral compression fractures Patient seen and examined this morning. Patient is resting comfortably in bed. Pain management services recommend patient to follow up with PCP and pain services outpatient. Medications have been prescribed. Discussed with patient that we are going to continue with conservative measures, awaiting delivery of brace from family. Patient verbalizes understanding and agrees with plan of car e. Patient will follow up in office after discharge. No acute concerns at this time. Patient is cleared from orthopedic standpoint, no further recommendations. Objective - Vital Signs Vital signs: Vital Signs Temp 98.0 F 11/23/22 07:09 Pulse 74 11/23/22 07:09 Resp 17 11/23/22 07:09 BP 136/77 11/23/22 07:09 Pulse Ox 98 11/23/22 07:09 FiO2 Intake & Output 11/22/22 11/23/22 11/23/22 18:59 06:59 18:59 Intake Total 1700 Output Total 700 2100 Balance -700 -400 Weight 53.524 kg Intake: Intake, IV Titration 900 Amount Sodium Chloride 0.9% 1, 900 000 ml @ 75 mls/hr IV . [id number] [facility] Rx#:[id number] Oral 800 Output: Urine 700 2100 - Exam Physical Examination General: The patient is awake and alert, in no acute distress Skin: Skin is warm and dry with no obvious rashes or lesions. Eye: Pupils are equal, round and reactive to light, extra-ocular movements are intact; there is normal conjunctiva bilaterally. Neck: The neck is supple, there is no tenderness and ROM intact. Cardiovascular: There is a regular rate and rhythm. No murmur, rub or gallop is appreciated. Respiratory: Lungs are clear to auscultation, respirations are non-labored, breath sounds are equal. Gastrointestinal: Soft, non-distended, non-tender abdomen. Back: There is no tenderness to palpation in the midline, paralumbar, parathoracic or buttocks region. There is no obvious deformity . Musculoskeletal: ROM limited secondary to pain and stiffness. Muscle strength in all major muscle groups of bilateral upper extremities 5/5, bilateral lower extremities 5/5. Neurological: CN 2-12 intact. There are no obvious motor or sensory deficits. Movement and coordination equal and intact. Sensory exam to light touch intact C5-T1 and intact from L2-S1. Reflexes 2/4 in bilateral upper and lower extremities. Negative Hoffmans, babinski, and clonus signs. Psychiatric: Cooperative, appropriate mood & affect, normal judgment. - Labs CBC & Chem 7: 11/21/22 04:59 11/22/22 06:19 Assessment and Plan Assessment: Back pain Acute/subacute L4 vertebral compression fracture Multilevel thoracic spondylosis Multiple thoracic vertebrae compression fractures Previous T12 kyphoplasty Kyphotic deformity Multilevel lumbar spondylosis Previous L2 kyphoplasty Plan: Pain control, continue with the oral medication, follow up with pain services: information provided in discharge instructions. Continue conservative measures, this included the use of his TLSO brace. PT/OT evaluation, recommending cane/walker as needed for weightbearing. Patient can weight-bear as tolerated. Avoid significant lifting, bending or twisting Encourage incentive spirometer GI and DVT prophylaxis per primary medical service Other medical aides teacher recommendations appreciated At this time we do not recommend any emergent/urgent orthopedic surgical interve ntion. Patient may follow-up with Dr. Prakash office for further evaluation in 2 weeks. Orthopedics is signing off at this time. Please do not hesitate to contact us for any further questions. Time with Patient: Less than 30
--- NOTE | 2022-11-23 14:11 | P.DS ---
Providers Date of admission: 11/19/22 18:14 Expected date of discharge: 11/23/22 Attending physician: Nader Moffett MD Consults: 11/19/22 22:02 Consult Physician Urgent Consulting Provider: Thai Prakash Consult Reason/Comments: Intractable back pain, age indeterminate fx L1-L4 likely old Do you want consulting provider notified?: Yes 11/20/22 02:10 Consult Physician Urgent Consulting Provider: Brody Hanley Consult Reason/Comments: L sided diaphragmatic hernia Do you want consulting provider notified?: Yes Primary care physician: Physician Nonstaff Hospital Course: 71-year-old male with a PMH of COPD, hypertension, hyperlipidemia, and multiple spinal compression fractures who presents to the emergency room with complaints of lower back pain. In the emergency room, CT chest, abdomen, and pelvis revealed a diaphragmatic hernia with intra-abdominal contents within the left hemithorax. There was also moderate emphysema changes as well as a large hiatal hernia with a large amount of ingested contents within the esophagus as well as layering debris in the left main bronchus suspicious for aspiration. Lumbar spinal x-ray revealed fractures of uncertain age involving L1 and L4. The patient's vital signs upon presentation were BP 124/82, SaO2 100% on 4 L nasal cannula oxygen, pulse 57, and temperature 97.8F. Laboratory evaluation was remarkable for sodium 128, chloride 95, BUN 8, creatinine 0.55, hemoglobin 13.6. Orthospine and Gen. surgery consulted. 11/21 Patient was seen and examined. Patient reports 7-8/10 severity back pain. States that Dilaudid does not work. Orthopedic Sx recommends conservative management. General surgery recommends no surgical intervention as patient is asymptomatic. CBC shows improvement of 12.2. BMP shows sodium of 130, creatinine 0.5, calcium of 8.1. 11/22 Patient was seen and examined. Patient reports 8/10 severity back pain. States that Dilaudid or Oxy IR does not work. He reports taking oxymorphone 10 mg PO Q6H at home. Orthopedic Sx recommends conservative management. General surgery recommends no surgical intervention as patient is asymptomatic. BMP shows sodium of 128, Cl 96, bicarb 31, BUN 6, creatinine 0.48, calcium of 8. 11/23 Patient was seen and examined. He continues to report severe back pain. PT has finally seen him since he got his TSLO brace yesterday and recommends walker on discharge. He is refusing SNF. Oxy IR 10 mg PO Q4H has been sent to the pharmacy by pain management. Advised to follow up with Dr. Patricia within 1 week, Dr. Prakash within 1 week, PCP within 1-[address] Hanley within 1 week of discharge. Plans for discharge home today. Pertinent studies include Lumbar spine x-ray, CT chest abdomen and pelvis, CT thoracic and lumbar spine. General: non toxic, no distress, appears at stated age, thin Derm: no unusual rashes/lesions, warm Head: atraumatic, normocephalic, symmetric Eyes: EOMI, no lid lag, anicteric sclera ENT: Nose and ears atraumatic Neck: No cervical lymphadenopathy, trachea midline, supple Cardiovascular: Good distal perfusion all 4 extremities Lungs: no accessory muscle use Neuro: no gross focal neuro deficits Psych: Alert, oriented, appropriate affect Discharge diagnosis: Acute/subacute L4 vertebral compression fracture Diaphragmatic hernia with intra-abdominal contents in left hemithorax; suspect incidental finding Hypochloremic hyponatremia, suspect due to poor oral intake Esophageal contents with suspected aspiration HypoNa This complex discharge took 35 minutes to complete. Patient Condition at Discharge: Stable Plan - Discharge Summary Discharge Rx Participant: Yes New Discharge Prescriptions: New Naloxone HCl [Narcan] 4 mg NASAL DIRECTED PRN 180 Days #1 each PRN Reason: Opioid Reversal oxyCODONE HCL [oxyCODONE HCL (IR)] 10 mg PO Q4H PRN 10 Days #42 tab PRN Reason: Pain Cyclobenzaprine [Flexeril] 5 mg PO TID #90 tab Acetaminophen Tab [Tylenol] 650 mg PO Q6HR PRN tab PRN Reason: Mild Pain Or Fever > 100.5 Continue Albuterol Nebulized [Ventolin Nebulized] 2.5 mg INHALATION RT-QID PRN PRN Reason: Shortness Of Breath Albuterol Sulfate [Albuterol Sulfate Hfa] 1 - 2 puff PO RT-Q6H PRN PRN Reason: Shortness Of Breath Metoprolol Tartrate [Lopressor] 12.5 mg PO BID Clopidogrel [Plavix] 75 mg PO DAILY Budesonide/Formoterol Fumarate [Symbicort 80-4.5 Mcg Inhaler] 2 puff INHALATION RT-BID Atorvastatin [Lipitor] 40 mg PO DAILY Ketoconazole 2% Cream [Nizoral 2%] 1 applic TOPICAL DAILY Sacubitril/Valsartan [Entresto 24 mg-26 mg Tablet] 1 tab PO BID Fluticasone/Umeclidin/Vilanter [Trelegy Ellipta 100-62.5-25] 1 puff INHALATION RT-DAILY Discontinued HYDROmorphone HCL [Dilaudid] 8 mg PO Q4H Discharge Medication List Albuterol Nebulized [Ventolin Nebulized] 2.5 mg INHALATION RT-QID PRN 11/19/22 [History] Albuterol Sulfate [Albuterol Sulfate Hfa] 1 - 2 puff PO RT-Q6H PRN 11/19/22 [History] Atorvastatin [Lipitor] 40 mg PO DAILY 11/19/22 [History] Budesonide/Formoterol Fumarate [Symbicort 80-4.5 Mcg Inhaler] 2 puff INHALATION RT-BID 11/19/22 [History] Clopidogrel [Plavix] 75 mg PO DAILY 11/19/22 [History] Fluticasone/Umeclidin/Vilanter [Trelegy Ellipta 100-62.5-25] 1 puff INHALATION RT-DAILY 11/19/22 [History] Ketoconazole 2% Cream [Nizoral 2%] 1 applic TOPICAL DAILY 11/19/22 [History] Metoprolol Tartrate [Lopressor] 12.5 mg PO BID 11/19/22 [History] Sacubitril/Valsartan [Entresto 24 mg-26 mg Tablet] 1 tab PO BID 11/19/22 [History] Naloxone HCl [Narcan] 4 mg NASAL DIRECTED PRN 180 Days #1 each 11/22/22 [Rx] oxyCODONE HCL [oxyCODONE HCL (IR)] 10 mg PO Q4H PRN 10 Days #42 tab 11/22/22 [Rx] Acetaminophen Tab [Tylenol] 650 mg PO Q6HR PRN tab 11/23/22 [Rx] Cyclobenzaprine [Flexeril] 5 mg PO TID #90 tab 11/23/22 [Rx] Follow up Appointment(s)/Referral(s): Ayan Patricia MD [Medical Doctor] - 1 Week (Pain management services) Nonstaff,Physician [Primary Care Provider] - 1-2 days Thai Prakash DO [Doctor of Osteopathic Medicine] - 1 Week Broyd Hanley MD [STAFF PHYSICIAN] - 1 Week Discharge Disposition: HOME WITH HOME HEALTH SERVICES
[2022-11-23 14:14] VITALS: BP 152/79; PULSE 55
== END 2022-11-23 15:39 | disposition home health service (06) ==
LOC: EC 16:50 → 4SSUR 18:14 → INTOOBSV 18:14 → 4SSUR 22:33
PROVIDERS: ADMIT Internal Medicine; ATTEND Internal Medicine
DX: M48.56XA Collapsed vertebra, not elsewhere classified, lumbar region, initial encounter for fracture (principal); K44.9 Diaphragmatic hernia without obstruction or gangrene; J43.9 Emphysema, unspecified; E43 Unspecified severe protein-calorie malnutrition; Z68.1 Body mass index [BMI] 19.9 or less, adult; I10 Essential (primary) hypertension; E78.5 Hyperlipidemia, unspecified; E87.1 Hypo-osmolality and hyponatremia; E87.8 Other disorders of electrolyte and fluid balance, not elsewhere classified; F17.200 Nicotine dependence, unspecified, uncomplicated; M96.1 Postlaminectomy syndrome, not elsewhere classified; C80.1 Malignant (primary) neoplasm, unspecified; M48.50XA Collapsed vertebra, not elsewhere classified, site unspecified, initial encounter for fracture; M47.814 Spondylosis without myelopathy or radiculopathy, thoracic region; M47.816 Spondylosis without myelopathy or radiculopathy, lumbar region; Z79.899 Other long term (current) drug therapy; Z79.02 Long term (current) use of antithrombotics/antiplatelets; Z79.51 Long term (current) use of inhaled steroids
CPT/HCPCS: 96376 ×5; 96361 ×3; 96372 ×2; 96375 ×2; 96374; 99285; 36415; 94640 ×7; 94760 ×2; 97162; 97166; 92610; 80053; 80048 ×3; 82150; 83605; 83690; 84484; 85025 ×2; 85610; 85730; 84145; 72100; 71046; 72128; 72131; 71260; 74177; G0378 ×5; J1650 ×2; J2270; J1170 ×6; J1885 ×2; Q9967